=== PATIENT | female | born 1980 | race Caucasian/White ===

== ENCOUNTER → 2019-07-29 | Outpatient (CLI) | payer OTHER ==
[~2019-07-29] MED LIST: AZO CRANBERRY1 EAC1; BACLOFEN5 MG; Bentyl10 MG; DULO30; GABAPENTIN250 MG/5 M; HYDCHL25; Hair, Skin & N1 EACH; IBUP600; MELATONIN5 M1; METO50ER; TIZANIDINE HCL4 MG
[2019-07-29 22:32] LABS: Adenovirus F 40/41 Not Detected (NOT DETECT); Astrovirus Not Detected (NOT DETECT); Campylobacter Sp Not Detected (NOT DETECT); Cryptosporidium Not Detected (NOT DETECT); Cyclospora Cayetanensis Not Detected (NOT DETECT); E. Coli O157 Not Detected (NOT DETECT); Entamoeba Histolytica Not Detected (NOT DETECT); Enteroaggregative E. coli-EAEC Not Detected (NOT DETECT); Enteropathogenic E. coli-EPEC Not Detected (NOT DETECT); Enterotoxigenic E. coli-ETEC Not Detected (NOT DETECT); Giardia Lamblia Not Detected (NOT DETECT); Norovirus GI/GII Not Detected (NOT DETECT); Plesiomonas Shigelloides Not Detected (NOT DETECT); Rotavirus A Not Detected (NOT DETECT); Salmonella Sp Not Detected (NOT DETECT); Sapovirus Not Detected (NOT DETECT); Shiga Toxin-prod E. coli-STEC Not Detected (NOT DETECT); Shigella/Enteroin E. coli-EIEC Not Detected (NOT DETECT); Vibrio Cholerae Not Detected (NOT DETECT); Vibrio Sp Not Detected (NOT DETECT); Yersinia Enterocolitica Not Detected (NOT DETECT)
== END | disposition home or self-care (01) ==
LOC: LAB EV 07:40 → LAB SHORT 18:33 → LAB EV 18:33
PROVIDERS: Internal Medicine Gastroenterology
DX: R19.7 Diarrhea, unspecified (principal); R10.9 Unspecified abdominal pain
CPT/HCPCS: 0097U; 84302; 84999

== ENCOUNTER 2019-08-02 08:54 | Day surgery (SDC) | payer OTHER ==
[~2019-08-02] VITALS: Ht 160 cm; Wt 90.0 kg
[2019-08-02] MEDS ORDERED: GABAPENTIN250 MG/5 M (10:06)
[2019-08-02] MEDS ORDERED: METO50ER (10:06)
[2019-08-02] MEDS ORDERED: BACLOFEN5 MG (10:06)
[2019-08-02] MEDS ORDERED: DULO30 (10:07)
[2019-08-02] MEDS ORDERED: IBUP600 (10:07)
[2019-08-02] MEDS ORDERED: AZO CRANBERRY1 EAC1 (10:08)
[2019-08-02] MEDS ORDERED: Hair, Skin & N1 EACH (10:08)
[2019-08-02] MEDS ORDERED: HYDCHL25 (10:08)
[2019-08-02] MEDS ORDERED: MELATONIN5 M1 (10:08)
[2019-08-02] MEDS ORDERED: Bentyl10 MG (10:09)
[2019-08-02] MEDS ORDERED: TIZANIDINE HCL4 MG (10:09)
--- NOTE | 2019-08-02 11:43 | NUR ---
08/02/19 1143 Gertrudis Bowers UNABLE TO FIND VITAL STRIP. PT.'S VITAL STABLE T.O. CASE.
== END 2019-08-02 11:26 | disposition home or self-care (01) ==
LOC: ORSCSDS 08:54
PROVIDERS: Internal Medicine Gastroenterology
PROC: 0DBE8ZX Excision of Large Intestine, Via Natural or Artificial Opening Endoscopic, Diagnostic (ICD-10-PCS; principal; 2019-08-02 10:15)
PROC: 0DBB8ZX Excision of Ileum, Via Natural or Artificial Opening Endoscopic, Diagnostic (ICD-10-PCS; principal; 2019-08-02 10:15)
PROC: 0DB68ZX Excision of Stomach, Via Natural or Artificial Opening Endoscopic, Diagnostic (ICD-10-PCS; principal; 2019-08-02 10:15)
PROC: 0DB98ZX Excision of Duodenum, Via Natural or Artificial Opening Endoscopic, Diagnostic (ICD-10-PCS; principal; 2019-08-02 10:15)
DX: R19.7 Diarrhea, unspecified (principal); K21.9 Gastro-esophageal reflux disease without esophagitis; K64.8 Other hemorrhoids; R10.9 Unspecified abdominal pain; K62.5 Hemorrhage of anus and rectum; F17.210 Nicotine dependence, cigarettes, uncomplicated; I10 Essential (primary) hypertension; Z79.899 Other long term (current) drug therapy
CPT/HCPCS: 88305; 88342; J2250; J2704; J7120

== ENCOUNTER 2021-01-29 07:14 | Day surgery (SDC) | payer MEDICARE, OTHER ==
[~2021-01-29 07:14] MED LIST changes: -AZO CRANBERRY1 EAC1; +AZO CRANBERRY1 EAC1 PO; -BACLOFEN5 MG; +BACLOFEN5 MG PO; -Bentyl10 MG; +Bentyl10 MG PO; +Catapres0.2 MG PO; -DULO30; +DULO30 PO; -GABAPENTIN250 MG/5 M; +GABAPENTIN250 MG/5 M PO; -HYDCHL25; +HYDCHL25 PO; -Hair, Skin & N1 EACH; +Hair, Skin & N1 EACH PO; -IBUP600; +IBUP600 PO; -MELATONIN5 M1; +MELATONIN5 M1 PO; -METO50ER; +METO50ER PO; +METPHE5 PO; +TIZA4 PO; -TIZANIDINE HCL4 MG
== END 2021-01-29 22:42 | disposition home or self-care (01) ==
LOC: MOI MAM 07:14 → MOI US 08:00 → MOI MAM 08:00
DX: N63.20 Unspecified lump in the left breast, unspecified quadrant (principal)
CPT/HCPCS: 19281; A4648

== ENCOUNTER 2021-02-01 08:13 | Day surgery (SDC) | payer MEDICARE, OTHER ==
[~2021-02-01] VITALS: Ht 160 cm; Wt 106.4 kg
--- NOTE | 2021-02-01 09:30 | NUR ---
Ambulatory in Day Surgery Surgical site prepped with 2% Chlorhexidine cloth wipe. History, Chart, Medications and Allergies reviewed before start of procedure. Lungs clear T/O to Auscultation. Patient confirms NPO status and agrees with scheduled surgery. URINE TOO DILUTE, LABS DRAWN c IV START AND SENT TO LAB.
--- NOTE | 2021-02-01 12:25 | NUR ---
02/01/21 1225 [facility],LING RIGHT BREAST BIOPSY SPECIMEN LABELED AND SENT TO XRAY PER DR JIMENEZ ORDERS AT 1158.
--- NOTE | 2021-02-01 13:02 | NUR ---
Dressing to procedure site clean, dry, intact with no visible drainage, swelling, erythema or bruising noted.
--- NOTE | 2021-02-01 13:37 | NUR ---
Dressing to procedure site clean, dry, intact with no visible drainage, swelling, erythema or bruising noted. Discharge instructions reviewed with patient. Patient verbalizes understanding. Copy given to patient to take home.
--- NOTE | 2021-02-01 13:49 | NUR ---
Discharged via wheelchair to private car for ride home.
== END 2021-02-01 13:50 | disposition home or self-care (01) ==
LOC: ORSCMMR 08:13 → ORD 10:00 → ORSCMMR 13:50
PROVIDERS: Surgery
PROC: 0HBT0ZX Excision of Right Breast, Open Approach, Diagnostic (ICD-10-PCS; principal; 2021-02-01 10:00)
DX: D24.1 Benign neoplasm of right breast (principal); I10 Essential (primary) hypertension; E66.01 Morbid (severe) obesity due to excess calories; Z68.41 Body mass index [BMI] 40.0-44.9, adult; Z79.899 Other long term (current) drug therapy
CPT/HCPCS: 84703; 88307; A9270; J0690; J1100; J1885; J2250; J2405; J2704; J3010; J7120; Q9968

== ENCOUNTER → 2022-08-29 | Outpatient (CLI) | payer MEDICARE, OTHER ==
[2022-08-30 15:10] LABS: HPV 16 Positive (Negative); HPV 18 Negative (Negative); HPV OTHER HR TYPES Negative (Negative)
== END ==
LOC: LAB SHORT 14:48 → LAB 14:48
PROVIDERS: Obstetrics & Gynecology
DX: Z01.419 Encounter for gynecological examination (general) (routine) without abnormal findings (principal)
CPT/HCPCS: 87624; G0123

== ENCOUNTER → 2022-09-20 | Outpatient (CLI) | payer MEDICARE, OTHER | LOC: LAB SHORT 13:02 → PLD 13:02 | DX: Q51.828 Other congenital malformations of cervix (principal) | CPT/HCPCS: 88305 ==